=== PATIENT | female | born 1970 | race African-American/Black ===

== ENCOUNTER 2016-07-04 11:15 | Emergency (ER) | payer OTHER ==
[~2016-07-04] VITALS: Ht 170.2 cm; Wt 105.2 kg
[2016-07-04] MEDS ORDERED: DIOVAN HCT 1601 EAC1 PO (11:21)
[2016-07-04] MEDS ORDERED: HYDROXYZINE HCL10 M1 PO (11:22)
[2016-07-04] MEDS ORDERED: CYCLOBENZAPRINE5 MG PO (12:45)
[2016-07-04] MEDS ORDERED: MOBIC15 MG PO (12:45)
[2016-07-04 12:55] VITALS: BP 135/92
== END 2016-07-04 12:56 | disposition home or self-care (01) ==
LOC: ER 11:15
DX: S66.911A Strain of unspecified muscle, fascia and tendon at wrist and hand level, right hand, initial encounter (principal); S29.011A Strain of muscle and tendon of front wall of thorax, initial encounter; S46.911A Strain of unspecified muscle, fascia and tendon at shoulder and upper arm level, right arm, initial encounter; F17.210 Nicotine dependence, cigarettes, uncomplicated; F10.99 Alcohol use, unspecified with unspecified alcohol-induced disorder; X58.XXXA Exposure to other specified factors, initial encounter; Y93.89 Activity, other specified; Y92.89 Other specified places as the place of occurrence of the external cause; Y99.8 Other external cause status